=== PATIENT | male | born 1985 | race Caucasian/White ===

== ENCOUNTER 2019-06-09 12:30 | Emergency (ER) | payer SELFPAY ==
[2019-06-09 13:11] LABS: BASOPHILS % 0.4 % (0.0-1.5)
[2019-06-09 13:13] VITALS: BP 164/87
--- NOTE | 2019-06-09 13:16 | ED Physician Documentation ---
Chest Pain - HISTORIAN Historian: patient - HPI Stated Complaint: chest pain Chief Complaint: Chest Pain Additional Information: Patient presents to ED with a 2 day history of epigastric/chest pressure, 6/10, radiating to left arm with associated numbness in hands/feet. Patient states he is traveling from [facility] where he was vacationing with his signifcant other. While in [place] his significant other experienced seizures and was hospitalized for several days. She was discharged with diagnosis of pseudoseizures and was told she could not fly so they have been driving back home to [place]. Over the past several days the significant other has had several seizures daily. This has caused patient a significant amount of anxiety and now he is afraid to drive. He saw the hospital while driving today so he came to the ED. Onset: days ago (2) Timing: gradual onset Duration: waxing, waning Last known Well Date: 06/09/19 Last Known Well Time: 12:00 Last known Well Code/Unknown Code: Unknown Context: emotional upset Severity: moderate Quality: pressure, burning Chest Pain Radiation: arms Chest Pain Signs/Symptoms: diaphoresis. denies: nausea, vomiting Worsened By: nothing Relieved By: nothing - ROS CONST: other (anxiety) MS/LYMPH: none GI/: none EYES/ENT: none SKIN/ENDO: none NEURO/PSYCH: none - PAST HX [place] risk factors: no pertinent history DVT/PE Risk Factors: other (traveling) TAD/AAA risk factors: none Neuro deficit: none GI disease: none Lung disease: none Surgeries/Procedures: none Allergies/Adverse Reactions: Allergies Allergy/AdvReac Type Severity Reaction Status Date / Time No Known Allergies Allergy Unverified 06/09/19 13:23 Home Medications: Ambulatory Orders Medication Instructions Recorded OLANZapine ODT [Zyprexa Odt] 5 mg PO Q12 PRN #30 tab.rapdis 06/09/19 - SOCIAL HX Smoking History: cigarettes Alcohol Use: none Drug Use: none - FAMILY HX Family HX: none - REVIEWED ASSESSMENTS Nursing Assessment Reviewed: Yes Vitals Reviewed: Yes Progress - Progress Progress: 1330 Patient states he is feeling much better after Zyprexa ED Results Lab/Radiology - Lab Results Lab Results: Lab Results 06/09/19 13:00 WBC 8.70 K/ul K/ul (4.00-12.00) RBC 4.66 M/ul M/ul (3.90-5.20) Hgb 14.6 g/dL g/dL (12.0-18.0) Hct 43.4 % % (37.0-53.0) MCV 93.0 fl fl (80.0-100.0) MCH 31.4 pg pg (28.0-34.0) MCHC 33.7 g/dL g/dL (30.0-36.0) RDW 10.8 % L % (11.3-14.3) Plt Count 354 K/mm3 K/mm3 (130-400) Neut % (Auto) 69.0 % % (39.0-79.0) Lymph % (Auto) 24.3 % % (16.0-50.0) [place] % (Auto) 5.6 % % (0.0-11.0) Eos % (Auto) 0.7 % % (0.0-6.8) Baso % (Auto) 0.4 % % (0.0-1.5) Neut # (Auto) 6.0 # k/uL # k/uL (1.4-7.7) Lymph # (Auto) 2.1 # k/uL # k/uL (0.6-4.0) [place] # (Auto) 0.5 # k/uL # k/uL (0.0-0.9) Eos # (Auto) 0.1 # k/uL # k/uL (0.0-0.6) Baso # (Auto) 0.0 # k/uL # k/uL (0.0-0.5) - Orders Orders: ED Orders Category Date Time Status CBC/PLATELET/DIFF Routine Lab 06/09/19 13:00 Completed CMP Routine Lab 06/09/19 Ordered OLANZapine ODT [ZyPREXA ODT] Med 06/09/19 12:43 Discontinued 10 mg SL NOW ONE EKG WITH COMPARISON Stat Ther 06/09/19 Ordered Chest Pain Physical Exam - EXAM General Appearance: no acute distress, anxious EENT: AMALIA Respiratory: no resp. distress, nml breath sounds CVS: reg. rate & rhythm, no murmur Abdomen: soft, normal bowel sounds Extremities: non-tender, no evidence of injury Neuro: oriented X3, mood/affect nml Discharge Clincal Impression: Anxiety Prescriptions: OLANZapine ODT [Zyprexa Odt] 5 mg PO Q12 PRN #30 tab.rapdis PRN Reason: Anxiety Referrals: Primary Doctor,No [Primary Care Provider] - 2 Days Additional Instructions: 1. Take Zyprexa every 12 hours as needed for anxiety. Rx escribed to [facility] Crisost[facility]. 2. Drink plenty of fluids to maintain proper hydration. Avoid alcohol 3. Follow up with PCP within 3 days 4. Return to ER for new or worsening symptoms Condition: Stable Disposition: 01 HOME, SELF-CARE Decision to Admit: NO Date of Decison to Admit: 06/09/19 Decision Time: 13:43
[2019-06-09 13:26] LABS: eGFR (Non-African) > 60
== END 2019-06-09 13:48 | disposition home or self-care (01) ==
LOC: ED 12:30
DX: F41.9 Anxiety disorder, unspecified (principal)
CPT/HCPCS: 80053; 85025; 93005; 99283; 99284